=== PATIENT | male | born 1960 | race African-American/Black ===

== ENCOUNTER 2019-04-17 11:56 | Inpatient (IN) | payer MEDICAID ==
[~2019-04-17] VITALS: Ht 172.7 cm; Wt 68.5 kg
[2019-04-17] VITALS (31 sets, daily range): BP systolic 103–166; BP diastolic 54–101
[~2019-04-17 11:56] MED LIST: LAMO25TA9 PO; PHEN100C12 PO
[2019-04-17] MEDS ORDERED: PHENYTOIN SODIUM 1,000 MG in SODIUM CHLORIDE 0.9% 100 ML IV ONE (12:45)
[2019-04-17] MEDS ORDERED: DEXAMETHASONE 10 MG/ML VIAL IV NR (13:25)
[2019-04-17 13:28] LABS: BASOPHILS % 1.2 % (0.0-2.0); EOSINOPHILS % 3.3 % (0.0-5.0); HEMATOCRIT. 35.8 % (42.0-52.0); HEMOGLOBIN. 12.5 g/dL (14.0-18.0); LYMPHOCYTES % 22.4 % (20.0-50.0); MEAN CORPUSCULAR HEMOGLOBIN 34.3 pg (28.0-32.0); MEAN CORPUSCULAR VOLUME 98.2 fL (80.0-94.0); MEAN PLATELET VOLUME 7.1 fl (7.4-10.4); MONOCYTES % 7.1 % (2.0-8.0); PLATELET 301 x1000/uL (130-400); RED BLOOD CELL COUNT 3.65 mill/uL (4.7-6.1); RED CELL DISTRIBUTION WIDTH 13.5 % (11.6-14.6)
[2019-04-17 13:30] LABS: CHLORIDE 111 mEq/L (98-107)
[2019-04-17 13:34] LABS: ETHANOL BLOOD < 10 mg/dL
[2019-04-17] MEDS ORDERED: MANNITOL 20% (20GM/100ML) BAG 500ML PREMIX IV ONE (14:15)
[2019-04-17] MEDS ORDERED: NICARDIPINE 100 MG in SODIUM CHLORIDE 0.9% 60 ML IV PRN (14:30)
[2019-04-17 15:18] LABS: CLARITY URINE CLEAR (CLEAR); COLOR URINE YELLOW (YELLOW); KETONES URINE NEGATIVE (NEGATIVE); LEUKOCYTE ESTERASE URINE NEGATIVE (NEGATIVE); NITRITE URINE NEGATIVE (NEGATIVE); OCCULT BLOOD URINE NEGATIVE (NEGATIVE); PH URINE 5.5 (4.5-8.0); PROTEIN URINE NEGATIVE (NEGATIVE); SPECIFIC GRAVITY URINE 1.018 (1.005-1.030); UROBILINOGEN URINE 0.2 E.U./dL (0.2-1.0)
[2019-04-17 15:28] LABS: *AMPHETAMINES SCREEN URINE NEGATIVE (NEGATIVE); *BARBITURATES SCREEN URINE NEGATIVE (NEGATIVE); *BENZODIAZEPINES SCREEN URINE PRESUMTIVE POSITIVE (NEGATIVE); *COCAINE SCREEN URINE NEGATIVE (NEGATIVE); METHADONE URINE SCREEN NEGATIVE (NEGATIVE)
[2019-04-17 15:29] LABS: CANNABINOID URINE SCREEN PRESUMTIVE POSITIVE (NEGATIVE); OPIATES URINE SCREEN NEGATIVE (NEGATIVE); PHENCYCLIDINE URINE SCREEN NEGATIVE (NEGATIVE)
[2019-04-17] MEDS: MORPHINE SULFATE 2 MG/ML CPJ (NOT FOR IM USE) IV PRN ×2 (15:34→20:45)
[2019-04-17] MEDS: NICARDIPINE 100 MG in SODIUM CHLORIDE 0.9% 60 ML IV PRN (15:54)
[2019-04-17 16:01] LABS: D-DIMER 0.22 mg/L FEU (<0.50); INR 0.9; PARTIAL THROMBOPLASTIN TIME 29.7 sec (23.4-31.0); PROTHROMBIN TIME 9.8 sec (9.6-11.0)
[2019-04-17 16:09] LABS: T4 FREE 0.91 ng/dL (0.76-1.46)
[2019-04-17] MEDS ORDERED: IPRATROPIUM/ALBUTEROL 0.5-3(2.5)MG/3ML NEB NEB PRN (17:15)
[2019-04-17] MEDS ORDERED: DOCUSATE SODIUM 100MG CAPSULE PO PRN (17:15)
[2019-04-17] MEDS ORDERED: MAGNESIUM/ALUMINUM HYDROXIDE/SIMETHICONE 30ML UDC PO PRN (17:15)
[2019-04-17] MEDS: DEXT 5%/LACTATED RINGERS 1,000 ML IV SCH (18:19)
[2019-04-17] MEDS: DEXAMETHASONE 4MG/ML 1ML VIAL IV SCH (20:46)
[2019-04-17] MEDS: PHENYTOIN SODIUM 100MG/2ML VIAL IV SCH (21:42)
[2019-04-18] VITALS (96 sets, daily range): BP systolic 37–174; BP diastolic 15–96
[2019-04-18] MEDS: MORPHINE SULFATE 2 MG/ML CPJ (NOT FOR IM USE) IV PRN ×2 (02:08→07:55)
[2019-04-18] MEDS: DEXAMETHASONE 4MG/ML 1ML VIAL IV SCH ×4 (02:09→21:01)
[2019-04-18] MEDS: NICARDIPINE 100 MG in SODIUM CHLORIDE 0.9% 60 ML IV PRN (04:33)
[2019-04-18 05:21] LABS: BASOPHILS % 0.4 % (0.0-2.0); HEMATOCRIT. 40.8 % (42.0-52.0); HEMOGLOBIN. 14.2 g/dL (14.0-18.0); LYMPHOCYTES % 10.3 % (20.0-50.0); MEAN CORPUSCULAR VOLUME 97.8 fL (80.0-94.0); MEAN PLATELET VOLUME 7.4 fl (7.4-10.4); NEUTROPHILS % 87.3 % (40.0-76.0); PLATELET 322 x1000/uL (130-400); RED BLOOD CELL COUNT 4.18 mill/uL (4.7-6.1); RED CELL DISTRIBUTION WIDTH 13.9 % (11.6-14.6)
[2019-04-18 05:38] LABS: CHLORIDE 106 mEq/L (98-107)
[2019-04-18 05:46] LABS: PHOSPHORUS 2.9 mg/dL (2.5-4.9)
[2019-04-18] MEDS: PHENYTOIN SODIUM 100MG/2ML VIAL IV SCH ×3 (06:03→21:01)
[2019-04-18] MEDS ORDERED: GADOBENATE DIMEGLUMINE 529 MG/ML 10ML IV ONE (09:09)
[2019-04-18] MEDS: ACETAMINOPHEN 325MG TABLET PO PRN (09:32)
[2019-04-18] MEDS ORDERED: BENZONATATE 100MG CAPSULE PO PRN (10:45)
[2019-04-18] MEDS: DEXT 5%/LACTATED RINGERS 1,000 ML IV SCH (11:53)
[2019-04-19] VITALS (78 sets, daily range): BP systolic 96–158; BP diastolic 49–100
[2019-04-19] MEDS: MORPHINE SULFATE 2 MG/ML CPJ (NOT FOR IM USE) IV PRN ×4 (00:19→23:26)
[2019-04-19] MEDS: DEXAMETHASONE 4MG/ML 1ML VIAL IV SCH ×4 (03:02→20:17)
[2019-04-19] MEDS: DEXT 5%/LACTATED RINGERS 1,000 ML IV SCH ×2 (03:03→23:26)
[2019-04-19] MEDS: PHENYTOIN SODIUM 100MG/2ML VIAL IV SCH ×2 (05:09→15:07)
[2019-04-19 06:02] LABS: BASOPHILS % 0.2 % (0.0-2.0); EOSINOPHILS % 0.1 % (0.0-5.0); HEMATOCRIT. 39.3 % (42.0-52.0); HEMOGLOBIN. 13.6 g/dL (14.0-18.0); MEAN CORPUSCULAR HEMOGLOBIN 34.3 pg (28.0-32.0); MEAN CORPUSCULAR VOLUME 98.9 fL (80.0-94.0); MEAN PLATELET VOLUME 7.8 fl (7.4-10.4); MONOCYTES % 5.2 % (2.0-8.0); NEUTROPHILS % 80.5 % (40.0-76.0); PLATELET 310 x1000/uL (130-400); RED BLOOD CELL COUNT 3.98 mill/uL (4.7-6.1); RED CELL DISTRIBUTION WIDTH 13.8 % (11.6-14.6)
[2019-04-19 06:06] LABS: CHLORIDE 106 mEq/L (98-107)
[2019-04-19] MEDS: NICARDIPINE 100 MG in SODIUM CHLORIDE 0.9% 60 ML IV PRN (07:06)
[2019-04-19] MEDS ORDERED: LIDOCAINE HCL 1% 20ML VIAL (Pyxis) INJ ONE ×2 (09:50→11:09)
[2019-04-19] MEDS ORDERED: LEVETIRACETAM 500 MG in SODIUM CHLORIDE 0.9% 100 ML IV SCH (17:00)
[2019-04-20] VITALS (60 sets, daily range): BP systolic 101–146; BP diastolic 27–97
[2019-04-20] MEDS: MORPHINE SULFATE 2 MG/ML CPJ (NOT FOR IM USE) IV PRN (03:26)
[2019-04-20] MEDS ORDERED: LEVETIRACETAM 500 MG in SODIUM CHLORIDE 0.9% 100 ML IV SCH (05:00)
[2019-04-20 05:10] LABS: BASOPHILS % 0.5 % (0.0-2.0); EOSINOPHILS % 0.1 % (0.0-5.0); HEMOGLOBIN. 12.3 g/dL (14.0-18.0); MEAN CORPUSCULAR HEMOGLOBIN 34.1 pg (28.0-32.0); MEAN CORPUSCULAR VOLUME 99.7 fL (80.0-94.0); MEAN PLATELET VOLUME 7.7 fl (7.4-10.4); NEUTROPHILS % 73.4 % (40.0-76.0); PLATELET 276 x1000/uL (130-400); RED BLOOD CELL COUNT 3.61 mill/uL (4.7-6.1); RED CELL DISTRIBUTION WIDTH 13.8 % (11.6-14.6)
[2019-04-20 05:12] LABS: CHLORIDE 104 mEq/L (98-107)
[2019-04-20] MEDS ORDERED: THROMBIN (BOVINE) 5000 UNITS/VIAL TOP ONE (06:13)
[2019-04-20] MEDS ORDERED: BACITRACIN 50,000 UNITS/VIAL ONE (06:14)
[2019-04-20] MEDS ORDERED: LIDOCAINE HCL/EPINEPHRINE 1%-EPI 1:100,000 20 ML VIAL ONE (06:14)
[2019-04-20] MEDS ORDERED: BACITRACIN 15GM TUBE TOP ONE (06:16)
[2019-04-20] MEDS ORDERED: LIDOCAINE HCL/PF 1% 10 MG/ML 5ML VIAL ONE (06:29)
[2019-04-20] MEDS ORDERED: FENTANYL CITRATE/PF 50MCG/ML 2ML VIAL ONE (06:29)
[2019-04-20] MEDS ORDERED: SODIUM CHLORIDE 0.9% 10ML VIAL ONE ×3 (06:29→07:06)
[2019-04-20] MEDS ORDERED: MIDAZOLAM HCL 2 MG/2 ML VIAL ONE (06:29)
[2019-04-20] MEDS ORDERED: ROCURONIUM BROMIDE 10MG/ML VIAL 5ML IV ONE (06:32)
[2019-04-20] MEDS ORDERED: PROPOFOL 200MG/20ML VIAL IV ONE (06:33)
[2019-04-20] MEDS ORDERED: EPHEDRINE SULFATE 50MG/ML VIAL ONE (06:40)
[2019-04-20] MEDS ORDERED: ESMOLOL HCL 10MG/ML 10ML VIAL IV ONE (07:01)
[2019-04-20] MEDS ORDERED: LABETALOL HCL 5MG/ML VIAL 20ML IV ONE (07:04)
[2019-04-20] MEDS ORDERED: CEFAZOLIN SODIUM 1000MG/VIAL ONE (07:06)
[2019-04-20] MEDS ORDERED: DEXAMETHASONE 4MG/ML 1ML VIAL ONE (07:31)
[2019-04-20] MEDS ORDERED: ONDANSETRON HCL 4MG/2ML INJ ONE (07:32)
[2019-04-20] MEDS ORDERED: GLYCOPYRROLATE 0.2 MG/ML 2ML VIAL ONE (07:53)
[2019-04-20] MEDS ORDERED: NEOSTIGMINE METHYLSULFATE 1MG/ML 10 ML VIAL ONE (07:53)
[2019-04-20] MEDS: MORPHINE SULFATE 4 MG/ML CPJ (NOT FOR IM USE) IV PRN ×9 (08:26→22:23)
[2019-04-20] MEDS: LEVETIRACETAM 500 MG in SODIUM CHLORIDE 0.9% 100 ML IV SCH ×2 (09:26→20:52)
[2019-04-20] MEDS ORDERED: DEXTROSE 50% WATER 50ML SYRINGE IV PRN ×2 (12:30)
[2019-04-20] MEDS: DEXT 5%/LACTATED RINGERS 1,000 ML IV SCH (12:59)
[2019-04-20] MEDS: CEFAZOLIN 1000MG PREMIX 50 ML IV SCH ×2 (13:01→21:50)
[2019-04-20] MEDS ORDERED: CEFAZOLIN SODIUM 1000MG/VIAL IV SCH (14:00)
[2019-04-20] MEDS: BLOOD SUGAR DIAGNOSTIC STRIP TEST SCH ×2 (16:33→20:44)
[2019-04-20] MEDS: INSULIN LISPRO 100 UNITS/ML SUBCUT SCH ×2 (16:34→20:45)
[2019-04-21] VITALS (91 sets, daily range): BP systolic 69–209; BP diastolic 17–134
[2019-04-21] MEDS: MORPHINE SULFATE 4 MG/ML CPJ (NOT FOR IM USE) IV PRN ×9 (01:17→14:38)
[2019-04-21] MEDS: DEXT 5%/LACTATED RINGERS 1,000 ML IV SCH ×2 (04:20→20:50)
[2019-04-21] MEDS: CEFAZOLIN 1000MG PREMIX 50 ML IV SCH ×3 (05:03→21:47)
[2019-04-21] MEDS: BLOOD SUGAR DIAGNOSTIC STRIP TEST SCH ×4 (06:14→20:32)
[2019-04-21] MEDS: INSULIN LISPRO 100 UNITS/ML SUBCUT SCH ×4 (06:14→20:32)
[2019-04-21 06:44] LABS: CHLORIDE 105 mEq/L (98-107)
[2019-04-21 06:51] LABS: BASOPHILS % 0.8 % (0.0-2.0); EOSINOPHILS % 0.5 % (0.0-5.0); HEMATOCRIT. 36.5 % (42.0-52.0); HEMOGLOBIN. 12.9 g/dL (14.0-18.0); MEAN CORPUSCULAR HEMOGLOBIN 35.5 pg (28.0-32.0); MEAN CORPUSCULAR VOLUME 100.2 fL (80.0-94.0); MEAN PLATELET VOLUME 7.9 fl (7.4-10.4); MONOCYTES % 8.2 % (2.0-8.0); NEUTROPHILS % 63.5 % (40.0-76.0); PLATELET 237 x1000/uL (130-400); RED BLOOD CELL COUNT 3.65 mill/uL (4.7-6.1); RED CELL DISTRIBUTION WIDTH 13.6 % (11.6-14.6)
[2019-04-21] MEDS: LEVETIRACETAM 500 MG in SODIUM CHLORIDE 0.9% 100 ML IV SCH (07:59)
[2019-04-21] MEDS ORDERED: HYDROCODONE/ACETAMINOPHEN 5/325MG TABLET PO PRN (10:45)
[2019-04-21] MEDS: DOCUSATE SODIUM 100MG CAPSULE PO SCH (11:28)
[2019-04-21] MEDS ORDERED: LORAZEPAM 2MG/ML CPJ ONE (15:40)
[2019-04-21] MEDS ORDERED: LORAZEPAM 2MG/ML CPJ IV NR (15:40)
[2019-04-21] MEDS ORDERED: PHENYTOIN 10MG/ML SYR IV ONE (16:00)
[2019-04-21] MEDS: LORAZEPAM 2MG/ML CPJ IV PRN (16:07)
[2019-04-21] MEDS ORDERED: SUCCINYLCHOLINE CHLORIDE 200MG/10ML IV ONE (16:59)
[2019-04-21] MEDS ORDERED: ETOMIDATE 2MG/ML 10ML VIAL IV ONE (16:59)
[2019-04-21] MEDS ORDERED: PHENYTOIN SODIUM 500 MG in SODIUM CHLORIDE 0.9% 50 ML IV NR ×2 (17:00→18:15)
[2019-04-21] MEDS: PROPOFOL 10MG/ML 100ML 100 ML IV PRN ×2 (17:10→23:07)
[2019-04-21 17:36] LABS: BG BASE EXCESS 0.6 mmol/L (-2.0-2.0); BG CARBOXYHEMOGLOBIN 0.6 % (0.5-1.5); BG DEOXYHEMOGLOBIN 0.6 % (0.0-5.0); BG FRACTION INSPIRED OXYGEN 100; BG HCO3 ACT 27.5 mmol/L (22.0-26.0); BG METHEMOGLOBIN 0.3 % (0.0-1.5); BG OXYGEN SATURATION 99.4 % (92.0-98.5); BG OXYHEMOGLOBIN 98.5 % (94.0-97.0); BG PCO2 53.3 mmHg (35.0-45.0); BG PH 7.331 (7.350-7.450); BG PO2 268.2 mmHg (75.0-100.0); BG SAMPLE SITE LEFT BRACHIAL; BG TIDAL VOLUME(mL) 650 mL; BG TOTAL HEMOGLOBIN 14.6 g/dL (12.0-18.0); BG VENT MODE VENT - A/C; BG VENT RATE 16 set
[2019-04-21] MEDS: ONDANSETRON HCL 4MG/2ML INJ IV PRN (18:37)
[2019-04-21] MEDS: LEVETIRACETAM 1,000 MG in SODIUM CHLORIDE 0.9% 100 ML IV SCH (20:50)
[2019-04-21] MEDS: FAMOTIDINE 20MG TABLET PO SCH (20:50)
[2019-04-21] MEDS: PHENYTOIN SODIUM 100MG/2ML VIAL IV SCH (21:47)
[2019-04-21 23:12] LABS: BG BASE EXCESS 2.7 mmol/L (-2.0-2.0); BG CARBOXYHEMOGLOBIN 0.3 % (0.5-1.5); BG DEOXYHEMOGLOBIN 2.2 % (0.0-5.0); BG FRACTION INSPIRED OXYGEN 80; BG HCO3 ACT 26.7 mmol/L (22.0-26.0); BG METHEMOGLOBIN 0.2 % (0.0-1.5); BG OXYGEN SATURATION 97.8 % (92.0-98.5); BG OXYHEMOGLOBIN 97.3 % (94.0-97.0); BG PCO2 39.1 mmHg (35.0-45.0); BG PH 7.453 (7.350-7.450); BG PO2 103.6 mmHg (75.0-100.0); BG SAMPLE SITE RIGHT RADIAL; BG TIDAL VOLUME(mL) 550 mL; BG TOTAL HEMOGLOBIN 13.2 g/dL (12.0-18.0); BG VENT MODE VENT - A/C; BG VENT RATE 22 set
[2019-04-22] VITALS (96 sets, daily range): BP systolic 90–153; BP diastolic 44–87
[2019-04-22] MEDS: PROPOFOL 10MG/ML 100ML 100 ML IV PRN ×3 (05:38→20:09)
[2019-04-22 05:45] LABS: BASOPHILS % 0.5 % (0.0-2.0); EOSINOPHILS % 2.1 % (0.0-5.0); HEMATOCRIT. 35.4 % (42.0-52.0); HEMOGLOBIN. 12.4 g/dL (14.0-18.0); LYMPHOCYTES % 17.6 % (20.0-50.0); MEAN CORPUSCULAR HEMOGLOBIN 34.4 pg (28.0-32.0); MEAN CORPUSCULAR VOLUME 98.1 fL (80.0-94.0); MEAN PLATELET VOLUME 7.9 fl (7.4-10.4); MONOCYTES % 8.2 % (2.0-8.0); NEUTROPHILS % 71.6 % (40.0-76.0); PLATELET 229 x1000/uL (130-400); RED BLOOD CELL COUNT 3.61 mill/uL (4.7-6.1); RED CELL DISTRIBUTION WIDTH 13.7 % (11.6-14.6)
[2019-04-22 05:54] LABS: CHLORIDE 103 mEq/L (98-107)
[2019-04-22] MEDS: INSULIN LISPRO 100 UNITS/ML SUBCUT SCH ×4 (06:00→20:19)
[2019-04-22] MEDS: BLOOD SUGAR DIAGNOSTIC STRIP TEST SCH ×4 (06:00→20:10)
[2019-04-22] MEDS: PHENYTOIN SODIUM 100MG/2ML VIAL IV SCH ×3 (06:00→21:24)
[2019-04-22] MEDS: CEFAZOLIN 1000MG PREMIX 50 ML IV SCH ×2 (06:00→13:43)
[2019-04-22] MEDS: LORAZEPAM 2MG/ML CPJ IV PRN ×2 (07:32→20:10)
[2019-04-22] MEDS: DOCUSATE SODIUM 100MG CAPSULE PO SCH (08:26)
[2019-04-22] MEDS: LEVETIRACETAM 1,000 MG in SODIUM CHLORIDE 0.9% 100 ML IV SCH ×2 (08:26→20:28)
[2019-04-22] MEDS: FAMOTIDINE 20MG TABLET PO SCH ×2 (08:27→20:09)
[2019-04-22 12:12] LABS: BG CARBOXYHEMOGLOBIN 0.7 % (0.5-1.5); BG DEOXYHEMOGLOBIN 1.8 % (0.0-5.0); BG FRACTION INSPIRED OXYGEN 70; BG HCO3 ACT 26.7 mmol/L (22.0-26.0); BG METHEMOGLOBIN 0.2 % (0.0-1.5); BG OXYGEN SATURATION 98.2 % (92.0-98.5); BG OXYHEMOGLOBIN 97.3 % (94.0-97.0); BG PH 7.513 (7.350-7.450); BG PO2 110.8 mmHg (75.0-100.0); BG SAMPLE SITE RIGHT RADIAL; BG TIDAL VOLUME(mL) 550 mL; BG VENT MODE VENT - A/C; BG VENT RATE 22 set
[2019-04-22] MEDS: MORPHINE SULFATE 4 MG/ML CPJ (NOT FOR IM USE) IV PRN ×2 (13:44→14:30)
[2019-04-22] MEDS: ONDANSETRON HCL 4MG/2ML INJ IV PRN (15:27)
[2019-04-22] MEDS: DEXT 5%/LACTATED RINGERS 1,000 ML IV SCH (20:09)
[2019-04-22] MEDS ORDERED: ETOMIDATE 2MG/ML 10ML VIAL IV ONE (21:50)
[2019-04-22] MEDS ORDERED: SUCCINYLCHOLINE CHLORIDE 200MG/10ML IV ONE (21:50)
[2019-04-23] VITALS (91 sets, daily range): BP systolic 98–158; BP diastolic 54–107
[2019-04-23] MEDS: PROPOFOL 10MG/ML 100ML 100 ML IV PRN ×5 (01:50→19:24)
[2019-04-23] MEDS: LORAZEPAM 2MG/ML CPJ IV PRN ×2 (02:03→06:03)
[2019-04-23 04:34] LABS: BASOPHILS % 0.4 % (0.0-2.0); EOSINOPHILS % 2.6 % (0.0-5.0); HEMOGLOBIN. 12.1 g/dL (14.0-18.0); LYMPHOCYTES % 14.3 % (20.0-50.0); MEAN CORPUSCULAR HEMOGLOBIN 33.9 pg (28.0-32.0); MEAN CORPUSCULAR VOLUME 97.7 fL (80.0-94.0); MEAN PLATELET VOLUME 7.4 fl (7.4-10.4); MONOCYTES % 9.1 % (2.0-8.0); NEUTROPHILS % 73.6 % (40.0-76.0); PLATELET 226 x1000/uL (130-400); RED BLOOD CELL COUNT 3.58 mill/uL (4.7-6.1); RED CELL DISTRIBUTION WIDTH 13.3 % (11.6-14.6)
[2019-04-23 04:44] LABS: CHLORIDE 103 mEq/L (98-107)
[2019-04-23 04:55] LABS: PHOSPHORUS 2.8 mg/dL (2.5-4.9)
[2019-04-23] MEDS: BLOOD SUGAR DIAGNOSTIC STRIP TEST SCH ×4 (05:43→20:51)
[2019-04-23] MEDS: PHENYTOIN SODIUM 100MG/2ML VIAL IV SCH ×3 (05:53→22:33)
[2019-04-23] MEDS: INSULIN LISPRO 100 UNITS/ML SUBCUT SCH ×4 (05:54→20:51)
[2019-04-23] MEDS: CLONIDINE 0.1MG TABLET PO PRN (08:19)
[2019-04-23] MEDS: LEVETIRACETAM 1,000 MG in SODIUM CHLORIDE 0.9% 100 ML IV SCH ×2 (08:19→20:51)
[2019-04-23] MEDS: FAMOTIDINE 20MG TABLET PO SCH ×2 (08:19→20:47)
[2019-04-23] MEDS: DOCUSATE SODIUM 100MG CAPSULE PO SCH (08:19)
[2019-04-23] MEDS: DEXT 5%/LACTATED RINGERS 1,000 ML IV SCH (08:20)
[2019-04-23 08:30] LABS: BG BASE EXCESS 4.1 mmol/L (-2.0-2.0); BG CARBOXYHEMOGLOBIN 0.3 % (0.5-1.5); BG DEOXYHEMOGLOBIN 2.1 % (0.0-5.0); BG FRACTION INSPIRED OXYGEN 70; BG HCO3 ACT 28.9 mmol/L (22.0-26.0); BG OXYGEN SATURATION 97.9 % (92.0-98.5); BG OXYHEMOGLOBIN 97.6 % (94.0-97.0); BG PCO2 44.1 mmHg (35.0-45.0); BG PH 7.435 (7.350-7.450); BG PO2 109.8 mmHg (75.0-100.0); BG SAMPLE SITE RIGHT RADIAL; BG TIDAL VOLUME(mL) 550 mL; BG TOTAL HEMOGLOBIN 13.1 g/dL (12.0-18.0); BG VENT MODE VENT - A/C; BG VENT RATE 16 set
[2019-04-23] MEDS: CEFTRIAXONE 1,000 MG in DEXTROSE 5% WATER 50 ML IV SCH (09:57)
[2019-04-23] MEDS ORDERED: POTASSIUM CHLORIDE INJ 40 MEQ in DEXT 5% WATER 250 ML IV NR (10:30)
[2019-04-23] MEDS: ACETAMINOPHEN 325MG TABLET PO PRN (12:07)
[2019-04-23] MEDS: IPRATROPIUM/ALBUTEROL 0.5-3(2.5)MG/3ML NEB HHN SCH ×2 (13:56→19:56)
[2019-04-24] VITALS (65 sets, daily range): BP systolic 99–160; BP diastolic 52–128
[2019-04-24] MEDS: PROPOFOL 10MG/ML 100ML 100 ML IV PRN ×3 (00:31→06:29)
[2019-04-24] MEDS: IPRATROPIUM/ALBUTEROL 0.5-3(2.5)MG/3ML NEB HHN SCH ×3 (03:04→20:05)
[2019-04-24 05:24] LABS: BASOPHILS % 0.3 % (0.0-2.0); EOSINOPHILS % 2.5 % (0.0-5.0); HEMATOCRIT. 35.7 % (42.0-52.0); HEMOGLOBIN. 12.2 g/dL (14.0-18.0); LYMPHOCYTES % 10.3 % (20.0-50.0); MEAN CORPUSCULAR HEMOGLOBIN 33.8 pg (28.0-32.0); MEAN CORPUSCULAR VOLUME 98.8 fL (80.0-94.0); MEAN PLATELET VOLUME 8.1 fl (7.4-10.4); MONOCYTES % 11.7 % (2.0-8.0); NEUTROPHILS % 75.2 % (40.0-76.0); PLATELET 249 x1000/uL (130-400); RED BLOOD CELL COUNT 3.61 mill/uL (4.7-6.1); RED CELL DISTRIBUTION WIDTH 13.2 % (11.6-14.6)
[2019-04-24 05:34] LABS: CHLORIDE 104 mEq/L (98-107)
[2019-04-24] MEDS: PHENYTOIN SODIUM 100MG/2ML VIAL IV SCH ×3 (05:49→21:08)
[2019-04-24] MEDS: DEXT 5%/LACTATED RINGERS 1,000 ML IV SCH ×3 (05:49→21:19)
[2019-04-24] MEDS: BLOOD SUGAR DIAGNOSTIC STRIP TEST SCH ×4 (05:49→21:18)
[2019-04-24] MEDS: INSULIN LISPRO 100 UNITS/ML SUBCUT SCH ×4 (07:00→21:00)
[2019-04-24 07:37] LABS: BG BASE EXCESS 2.8 mmol/L (-2.0-2.0); BG CARBOXYHEMOGLOBIN 0.4 % (0.5-1.5); BG DEOXYHEMOGLOBIN 4.2 % (0.0-5.0); BG FRACTION INSPIRED OXYGEN 40; BG HCO3 ACT 27.4 mmol/L (22.0-26.0); BG METHEMOGLOBIN 0.6 % (0.0-1.5); BG OXYGEN SATURATION 95.8 % (92.0-98.5); BG OXYHEMOGLOBIN 94.8 % (94.0-97.0); BG PCO2 42.2 mmHg (35.0-45.0); BG SAMPLE SITE RIGHT RADIAL; BG TIDAL VOLUME(mL) 500 mL; BG TOTAL HEMOGLOBIN 13.1 g/dL (12.0-18.0); BG VENT MODE VENT - A/C; BG VENT RATE 16 set
[2019-04-24] MEDS: DOCUSATE SODIUM 100MG CAPSULE PO SCH (09:00)
[2019-04-24] MEDS: LEVETIRACETAM 1,000 MG in SODIUM CHLORIDE 0.9% 100 ML IV SCH ×2 (10:00→21:08)
[2019-04-24] MEDS: FAMOTIDINE 20MG TABLET PO SCH ×2 (10:01→21:00)
[2019-04-24] MEDS: CEFTRIAXONE 1,000 MG in DEXTROSE 5% WATER 50 ML IV SCH (10:32)
[2019-04-24 12:09] LABS: BG BASE EXCESS 2.3 mmol/L (-2.0-2.0); BG CARBOXYHEMOGLOBIN 0.3 % (0.5-1.5); BG DEOXYHEMOGLOBIN 3.8 % (0.0-5.0); BG FRACTION INSPIRED OXYGEN 40; BG HCO3 ACT 27.1 mmol/L (22.0-26.0); BG METHEMOGLOBIN 0.3 % (0.0-1.5); BG OXYGEN SATURATION 96.2 % (92.0-98.5); BG OXYHEMOGLOBIN 95.6 % (94.0-97.0); BG PCO2 42.8 mmHg (35.0-45.0); BG PO2 85.3 mmHg (75.0-100.0); BG PRESSURE SUPPORT 8; BG SAMPLE SITE RIGHT BRACHIAL; BG TOTAL HEMOGLOBIN 12.6 g/dL (12.0-18.0); BG VENT MODE VENT - CPAP
[2019-04-24] MEDS: CLONIDINE 0.1MG TABLET PO PRN (14:26)
[2019-04-24] MEDS: AMLODIPINE 5MG TABLET PO SCH (16:27)
[2019-04-24] MEDS: NICARDIPINE 100 MG in SODIUM CHLORIDE 0.9% 60 ML IV PRN (17:36)
[2019-04-25] VITALS (78 sets, daily range): BP systolic 76–163; BP diastolic 48–105
[2019-04-25] MEDS: ACETYLCYSTEINE 100MG/ML 10% VIAL 4ML INH SCH ×2 (00:23→08:14)
[2019-04-25] MEDS: IPRATROPIUM/ALBUTEROL 0.5-3(2.5)MG/3ML NEB HHN SCH ×6 (00:23→20:28)
[2019-04-25 05:08] LABS: CHLORIDE 103 mEq/L (98-107)
[2019-04-25 05:10] LABS: BASOPHILS % 0.6 % (0.0-2.0); EOSINOPHILS % 3.3 % (0.0-5.0); HEMATOCRIT. 33.4 % (42.0-52.0); HEMOGLOBIN. 11.7 g/dL (14.0-18.0); LYMPHOCYTES % 17.1 % (20.0-50.0); MEAN CORPUSCULAR HEMOGLOBIN 33.9 pg (28.0-32.0); MEAN CORPUSCULAR VOLUME 96.8 fL (80.0-94.0); MEAN PLATELET VOLUME 7.9 fl (7.4-10.4); MONOCYTES % 12.7 % (2.0-8.0); NEUTROPHILS % 66.3 % (40.0-76.0); PLATELET 282 x1000/uL (130-400); RED BLOOD CELL COUNT 3.45 mill/uL (4.7-6.1)
[2019-04-25] MEDS: BLOOD SUGAR DIAGNOSTIC STRIP TEST SCH ×4 (06:19→20:26)
[2019-04-25] MEDS: INSULIN LISPRO 100 UNITS/ML SUBCUT SCH ×4 (06:19→20:26)
[2019-04-25] MEDS: PHENYTOIN SODIUM 100MG/2ML VIAL IV SCH ×2 (06:26→13:14)
[2019-04-25] MEDS: FAMOTIDINE 20MG TABLET PO SCH ×2 (09:00→20:26)
[2019-04-25] MEDS: LEVETIRACETAM 1,000 MG in SODIUM CHLORIDE 0.9% 100 ML IV SCH ×2 (09:05→20:26)
[2019-04-25] MEDS: DOCUSATE SODIUM 100MG CAPSULE PO SCH (09:21)
[2019-04-25] MEDS: AMLODIPINE 5MG TABLET PO SCH (09:21)
[2019-04-25] MEDS: ACETAMINOPHEN 325MG TABLET PO PRN (09:21)
[2019-04-25] MEDS: CEFTRIAXONE 1,000 MG in DEXTROSE 5% WATER 50 ML IV SCH (12:03)
[2019-04-25] MEDS: CLONIDINE 0.1MG TABLET PO PRN (13:14)
[2019-04-25] MEDS: GUAIFENESIN 600MG ER TABLET PO SCH (20:26)
[2019-04-25] MEDS: PHENYTOIN SODIUM EXTENDED 100MG CAPSULE PO SCH (21:30)
[2019-04-26] VITALS (57 sets, daily range): BP systolic 80–163; BP diastolic 23–96
[2019-04-26] MEDS: IPRATROPIUM/ALBUTEROL 0.5-3(2.5)MG/3ML NEB HHN SCH ×6 (00:24→20:10)
[2019-04-26] MEDS: INSULIN LISPRO 100 UNITS/ML SUBCUT SCH ×3 (05:39→20:30)
[2019-04-26] MEDS: PHENYTOIN SODIUM EXTENDED 100MG CAPSULE PO SCH ×3 (05:39→20:33)
[2019-04-26] MEDS: BLOOD SUGAR DIAGNOSTIC STRIP TEST SCH ×3 (05:39→20:29)
[2019-04-26] MEDS: LEVETIRACETAM 1,000 MG in SODIUM CHLORIDE 0.9% 100 ML IV SCH ×2 (08:22→20:33)
[2019-04-26] MEDS: DOCUSATE SODIUM 100MG CAPSULE PO SCH (08:22)
[2019-04-26] MEDS: GUAIFENESIN 600MG ER TABLET PO SCH ×2 (08:22→20:34)
[2019-04-26] MEDS: AMLODIPINE 5MG TABLET PO SCH (08:25)
[2019-04-26] MEDS: FAMOTIDINE 20MG TABLET PO SCH ×2 (08:27→20:33)
[2019-04-26] MEDS: ACETAMINOPHEN 325MG TABLET PO PRN (10:03)
[2019-04-26] MEDS: CEFTRIAXONE 1,000 MG in DEXTROSE 5% WATER 50 ML IV SCH (10:48)
[2019-04-27] VITALS (33 sets, daily range): BP systolic 84–156; BP diastolic 38–101
[2019-04-27] MEDS: IPRATROPIUM/ALBUTEROL 0.5-3(2.5)MG/3ML NEB HHN SCH ×2 (00:11→04:16)
[2019-04-27 05:17] LABS: BASOPHILS % 0.8 % (0.0-2.0); EOSINOPHILS % 4.3 % (0.0-5.0); HEMATOCRIT. 37.8 % (42.0-52.0); LYMPHOCYTES % 20.9 % (20.0-50.0); MEAN CORPUSCULAR HEMOGLOBIN 33.7 pg (28.0-32.0); MEAN CORPUSCULAR VOLUME 97.5 fL (80.0-94.0); MEAN PLATELET VOLUME 7.5 fl (7.4-10.4); MONOCYTES % 14.5 % (2.0-8.0); NEUTROPHILS % 59.5 % (40.0-76.0); PLATELET 336 x1000/uL (130-400); RED BLOOD CELL COUNT 3.88 mill/uL (4.7-6.1); RED CELL DISTRIBUTION WIDTH 13.8 % (11.6-14.6)
[2019-04-27 05:22] LABS: CHLORIDE 104 mEq/L (98-107)
[2019-04-27] MEDS: BLOOD SUGAR DIAGNOSTIC STRIP TEST SCH ×2 (06:00→11:30)
[2019-04-27] MEDS: INSULIN LISPRO 100 UNITS/ML SUBCUT SCH ×2 (06:00→12:00)
[2019-04-27] MEDS: PHENYTOIN SODIUM EXTENDED 100MG CAPSULE PO SCH ×2 (06:01→13:37)
[2019-04-27] MEDS: ACETAMINOPHEN 325MG TABLET PO PRN ×2 (06:02→08:40)
[2019-04-27] MEDS: LEVETIRACETAM 1,000 MG in SODIUM CHLORIDE 0.9% 100 ML IV SCH (08:40)
[2019-04-27] MEDS: DOCUSATE SODIUM 100MG CAPSULE PO SCH (08:40)
[2019-04-27] MEDS: GUAIFENESIN 600MG ER TABLET PO SCH (08:41)
[2019-04-27] MEDS: FAMOTIDINE 20MG TABLET PO SCH (08:41)
[2019-04-27] MEDS: AMLODIPINE 5MG TABLET PO SCH (08:42)
[2019-04-27] MEDS: CEFTRIAXONE 1,000 MG in DEXTROSE 5% WATER 50 ML IV SCH (10:39)
== END 2019-04-27 16:00 | DRG 20 ==
LOC: ER 12:04 → MICUNO 14:22 → ENRESERV 15:53
PROVIDERS: ADMIT Family Medicine Adult Medicine; ATTEND Family Medicine Adult Medicine
PROC: 02HV33Z Insertion of Infusion Device into Superior Vena Cava, Percutaneous Approach (ICD-10-PCS; 2019-04-19)
PROC: B548ZZA Ultrasonography of Superior Vena Cava, Guidance (ICD-10-PCS; 2019-04-19)
PROC: 00C40ZZ Extirpation of Matter from Intracranial Subdural Space, Open Approach (ICD-10-PCS; principal; 2019-04-20)
PROC: 00U207Z Supplement Dura Mater with Autologous Tissue Substitute, Open Approach (ICD-10-PCS; 2019-04-20)
PROC: 4A103BD Monitoring of Intracranial Pressure, Percutaneous Approach (ICD-10-PCS; 2019-04-20)
PROC: 00H032Z Insertion of Monitoring Device into Brain, Percutaneous Approach (ICD-10-PCS; 2019-04-20)
PROC: 4A00X4Z Measurement of Central Nervous Electrical Activity, External Approach (ICD-10-PCS; 2019-04-20)
PROC: 5A1945Z Respiratory Ventilation, 24-96 Consecutive Hours (ICD-10-PCS; 2019-04-21)
DX: S06.5X9A Traumatic subdural hemorrhage with loss of consciousness of unspecified duration, initial encounter (principal); J96.01 Acute respiratory failure with hypoxia; E43 Unspecified severe protein-calorie malnutrition; G93.49 Other encephalopathy; G40.911 Epilepsy, unspecified, intractable, with status epilepticus; E87.2 Acidosis; R13.10 Dysphagia, unspecified; F12.90 Cannabis use, unspecified, uncomplicated; F17.210 Nicotine dependence, cigarettes, uncomplicated; L84 Corns and callosities; R47.01 Aphasia; V03.10XA Pedestrian on foot injured in collision with car, pick-up truck or van in traffic accident, initial encounter; Z91.14 Patient's other noncompliance with medication regimen; Z68.23 Body mass index [BMI] 23.0-23.9, adult
CPT/HCPCS: 31500; 36415; 36600; 70553; 71045; 76937; 80048; 80185; 80305; 80320; 81003; 82375; 82805; 82962; 83036; 83735; 84100; 84439; 84443; 84478; 84481; 85379; 85384; 86850; 86900; 88304; 92610; 93005; 93970; 94002; 94003; 94640; 97110; 97112; 97116; 97162; 97166; 99285; A9577; C1713; C1725; C1758; J0330; J0690; J0696; J1100; J1165; J1953; J2060; J2250; J2270; J2405; J2704; J2710; J3010; J3480; J3490; J7050; J7060; J7120; J7608; J7620; A4315; G0480

== ENCOUNTER 2019-06-01 13:34 | Emergency (ER) | payer MEDICAID ==
[~2019-06-01] VITALS: Ht 180.3 cm; Wt 70.0 kg
[2019-06-01 15:21] VITALS: BP 122/68
== END 2019-06-01 15:32 | disposition home or self-care (01) ==
LOC: ER 13:34
DX: S01.81XD Laceration without foreign body of other part of head, subsequent encounter (principal); X58.XXXD Exposure to other specified factors, subsequent encounter; Z86.73 Personal history of transient ischemic attack (TIA), and cerebral infarction without residual deficits
CPT/HCPCS: 99281

== ENCOUNTER 2020-04-21 11:46 | Emergency (ER) | payer MEDICAID ==
[~2020-04-21] VITALS: Ht 175.3 cm; Wt 79.0 kg
[2020-04-21] MEDS ORDERED: ACETAMINOPHEN 325MG TABLET PO STA (12:11)
[2020-04-21] MEDS ORDERED: FAMOTIDINE 20MG TABLET PO ONE (12:15)
[2020-04-21] MEDS ORDERED: ASPIRIN 325MG TABLET PO ONE (12:15)
[2020-04-21] MEDS ORDERED: ASPIRIN 81MG TABLET PO ONE (12:15)
[2020-04-21] MEDS ORDERED: MAGNESIUM/ALUMINUM HYDROXIDE/SIMETHICONE 30ML UDC PO ONE (12:15)
[2020-04-21 12:39] LABS: EOSINOPHILS % 1.4 % (0.0-5.0); HEMATOCRIT. 40.5 % (42.0-52.0); HEMOGLOBIN. 14.2 g/dL (14.0-18.0); LYMPHOCYTES % 27.7 % (20.0-50.0); MEAN CORPUSCULAR HEMOGLOBIN 34.6 pg (28.0-32.0); MEAN CORPUSCULAR VOLUME 98.5 fL (80.0-94.0); MEAN PLATELET VOLUME 7.9 fl (7.4-10.4); MONOCYTES % 6.9 % (2.0-8.0); PLATELET 216 x1000/uL (130-400); RED BLOOD CELL COUNT 4.11 mill/uL (4.7-6.1); RED CELL DISTRIBUTION WIDTH 14.4 % (11.6-14.6)
[2020-04-21 12:46] LABS: CHLORIDE 108 mEq/L (98-107)
[2020-04-21 18:13] VITALS: BP 123/67
== END 2020-04-21 17:50 | disposition home or self-care (01) ==
LOC: ER 11:46
DX: R07.2 Precordial pain (principal); R03.0 Elevated blood-pressure reading, without diagnosis of hypertension; G40.909 Epilepsy, unspecified, not intractable, without status epilepticus
CPT/HCPCS: 36415; 71045; 80053; 83880; 84484; 85025; 85379; 93005; 99285; Z7610